=== PATIENT | female | born 1985 | race Caucasian/White ===

== ENCOUNTER 2022-01-10 17:27 | Emergency (ER) | payer BC ==
[2022-01-10 17:46] LABS: Absolute Neutrophil Ct (ANC) 4.93 x10^3/uL (1.4-6.9); Basophil (Absolute #) 0.05 x10^3/uL (0-0.4); Eosinophil % 5.6 % (0.00-5.0); Eosinophil (Absolute #) 0.42 x10^3/uL (0-0.5); Hematocrit 38.7 % (35-47); Lymphocyte (Absolute #) 1.57 x10^3/uL (1.0-4.6); Lymphocytes % 20.8 % (24.0-44.0); Mean Cell Volume 81.8 fL (78-100); Mean Corpuscular Hemoglobin 25.4 pg (26-32); Monocyte (Absolute #) 0.57 x10^3/uL (0.0-1.3); Monocytes % 7.5 % (0.0-12.0); Neutrophil % 65.1 % (36.0-66.0); Platelet Count 256 x10^3/uL (150-450); Red Blood Count 4.73 x10^6/uL (4.1-5.4); Red Cell Distribution Width 13.1 % (11.5-14.0); White Blood Count 7.6 x10^3/uL (4.0-10.5)
--- NOTE | 2022-01-10 18:19 | ERPHSYRPT ---
- History of Present Illness Source: patient Exam Limitations: no limitations Patient Subjective Stated Complaint: - bleeding Triage Nursing Assessment: Patient ambulated back to ED and transferred self to bed. Patient A+O X3. Patient's skin pink, warm and dry. Patient states she is 8 weeks and 4 days . Patient states she started having a little blood when she wiped. Patient states today she started wearing a pad and around 1600 she started bleeding very bad with clots. Patient states she was having pain, but denies pain now. Patient states she is still bleeding. Timing/Duration: other (1600) Activites at Onset: rest Quality: cramping (Resolved) Onset Location: suprapubic Pain Radiation: none Severity of Pain-Max: moderate Severity of Pain-Current: none Prior abdominal problems: none Sexual intercourse history: other (Pt ) Modifying Factors: Improves With: nothing Associated Symptoms: denies symptoms Hx Tetanus, Diphtheria Vaccination/Date Given: Yes Hx Influenza Vaccination/Date Given: No Hx Pneumococcal Vaccination/Date Given: No <FIONA FARMER - Last Filed: 01/10/22 19:15> <RAMONA BRODERICK - Last Filed: 01/10/22 19:59> - History of Present Illness Time Seen by Provider: 01/10/22 19:55 Physician History: 36 yo WF who is 8wks, 4days presents w vaginal bleeding since 1600 today. Pt had mild supra-pubic cramping which has since resolved. She denies N/V/D/fever/dysuria. She has not had an [place] yest. (FIONA FARMER) Allergies/Adverse Reactions: No Known Drug Allergies Allergy (Verified 01/10/22 17:36) Home Medications: Labetalol HCl 100 mg [Trandate 100 MG] 1 tab PO BID 01/10/22 [History] Travel Risk - International Travel Have you traveled outside of the country in past 3 weeks: No - Coronavirus Screening Are you exhibiting any of the following symptoms?: No Close contact with a COVID-19 positive Pt in past 14-21 Days: No - Vaccine Status Have you recieved a Covid-19 vaccination: No <FIONA FARMER - Last Filed: 01/10/22 19:15> - Review of Systems Constitutional: No Symptoms Eyes: No Symptoms Ears, Nose, & Throat: No Symptoms Respiratory: No Symptoms Cardiac: No Symptoms Abdominal/Gastrointestinal: No Symptoms Genitourinary Symptoms: No Symptoms, Vaginal Bleeding Musculoskeletal: No Symptoms Skin: No Symptoms Neurological: No Symptoms Psychological: No Symptoms Endocrine: No Symptoms Hematologic/Lymphatic: No Symptoms Immunological/Allergic: No Symptoms <FIONA FARMER - Last Filed: 01/10/22 19:15> - Past Medical History Pertinent Past Medical History: Yes Neurological History: No Pertinent History ENT History: No Pertinent History Cardiac History: Hypertension Respiratory History: No Pertinent History Endocrine Medical History: No Pertinent History Musculoskeletal History: No Pertinent History GI Medical History: Gallbladder Disease History: No Pertinent History Psycho-Social History: No Pertinent History Female Reproductive Disorders: No Pertinent History - Past Surgical History Past Surgical History: Yes Neuro Surgical History: No Pertinent History Cardiac: No Pertinent History Respiratory: No Pertinent History Gastrointestinal: Cholecystectomy Genitourinary: No Pertinent History Musculoskeletal: No Pertinent History Female Surgical History: No Pertinent History - Social History Smoking Status: Never smoker Exposure to second hand smoke: No Drug Use: none Patient Lives Alone: No - Female History Hx Last Menstrual Period: November 11 Hx Now: Yes Expected Date of Delivery: 08/18/22 <FIONA FARMER - Last Filed: 01/10/22 19:15> - Physical Exam General Appearance: no apparent distress Eye Exam: PERRL/EOMI, eyes nml inspection Ears, Nose, Throat Exam: normal ENT inspection, TMs normal, pharynx normal, moist mucous membranes Neck Exam: normal inspection, non-tender, supple, full range of motion, No meningismus, No mass, No Brudzinski, No Kernig's Respiratory Exam: normal breath sounds, lungs clear, airway intact Cardiovascular Exam: regular rate/rhythm, normal heart sounds, normal peripheral pulses, capillary refill <2 sec, No murmur Gastrointestinal/Abdomen Exam: soft, normal bowel sounds, No tenderness Back Exam: normal inspection, normal range of motion, No CVA tenderness, No vertebral tenderness Extremity Exam: normal inspection, normal range of motion Neurologic Exam: alert, oriented x 3, cooperative, 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, normal mood/affect, nml cerebellar function, nml station & gait, sensation nml Skin Exam: normal color, warm, dry, No rash Lymphatic Exam: No adenopathy SpO2 Interpretation: normal SpO2: 99 O2 Delivery: Room Air <FIONA FARMER - Last Filed: 01/10/22 19:15> - Nursing Vital Signs Nursing Vital Signs: Initial Vital Signs Temperature 97.6 F 01/10/22 17:39 Pulse Rate 84 01/10/22 17:39 Respiratory Rate 18 01/10/22 17:39 Blood Pressure 149/93 01/10/22 17:39 O2 Sat by Pulse Oximetry 99 01/10/22 17:39 Pain Scale Pain Intensity 0 Hypertensive (FIONA FARMER) - Course Nursing assessment & vital signs reviewed: Yes <FIONA FARMER - Last Filed: 01/10/22 19:15> Ordered Tests: Active Orders 24 hr Category Date Time Status OB LIMITED [US] Stat Exams 01/10/22 19:44 Taken CBC W DIFF Stat Lab 01/10/22 17:44 Completed HCG QUALITATIVE,SERUM Stat Lab 01/10/22 17:44 Completed HCG, Quantitative (Inhouse) Stat Lab 01/10/22 17:44 Completed Lab/Rad Data: Laboratory Result Diagrams 01/10/22 17:44 Laboratory Results 01/10/22 01/10/22 01/10/22 Range/Units 17:57 17:44 17:44 WBC (4.0-10.5) x10^3/uL RBC (4.1-5.4) x10^6/uL Hgb (12.0-16.0) g/dL Hct (35-47) % MCV (78-100) fL MCH (26-32) pg MCHC (32-36) g/dL RDW (11.5-14.0) % Plt Count (150-450) x10^3/uL MPV (7.5-11.0) fL Gran % (36.0-66.0) % Immature Gran % (Auto) (0.00-0.4) % Nucleat RBC Rel Count (0.00-0.1) % Eos # (Auto) (0-0.5) x10^3/uL Immature Gran # (Auto) (0.00-0.03) x10^3u/L Absolute Lymphs (auto) (1.0-4.6) x10^3/uL Absolute Monos (auto) (0.0-1.3) x10^3/uL Absolute Nucleated RBC (0.00-0.01) x10^3u/L Lymphocytes % (24.0-44.0) % Monocytes % (0.0-12.0) % Eosinophils % (0.00-5.0) % Basophils % (0.0-0.4) % Absolute Granulocytes (1.4-6.9) x10^3/uL Basophils # (0-0.4) x10^3/uL Beta HCG, Quant 86615 mIU/ml Serum , Qual POSITIVE (Negative) Rh Factor POSITIVE 01/10/22 Range/Units 17:44 WBC 7.6 (4.0-10.5) x10^3/uL RBC 4.73 (4.1-5.4) x10^6/uL Hgb 12.0 (12.0-16.0) g/dL Hct 38.7 (35-47) % MCV 81.8 (78-100) fL MCH 25.4 L (26-32) pg MCHC 31.0 L (32-36) g/dL RDW 13.1 (11.5-14.0) % Plt Count 256 (150-450) x10^3/uL MPV 9.0 (7.5-11.0) fL Gran % 65.1 (36.0-66.0) % Immature Gran % (Auto) 0.3 (0.00-0.4) % Nucleat RBC Rel Count 0.0 (0.00-0.1) % Eos # (Auto) 0.42 (0-0.5) x10^3/uL Immature Gran # (Auto) 0.02 (0.00-0.03) x10^3u/L Absolute Lymphs (auto) 1.57 (1.0-4.6) x10^3/uL Absolute Monos (auto) 0.57 (0.0-1.3) x10^3/uL Absolute Nucleated RBC 0.00 (0.00-0.01) x10^3u/L Lymphocytes % 20.8 L (24.0-44.0) % Monocytes % 7.5 (0.0-12.0) % Eosinophils % 5.6 H (0.00-5.0) % Basophils % 0.7 (0.0-0.4) % Absolute Granulocytes 4.93 (1.4-6.9) x10^3/uL Basophils # 0.05 (0-0.4) x10^3/uL Beta HCG, Quant mIU/ml Serum , Qual (Negative) Rh Factor <FIONA FARMER - Last Filed: 01/10/22 19:15> - Progress Progress: improved Air Movement: good Blood Culture(s) Obtained: No Antibiotics given: No Counseled pt/family regarding: lab results, diagnosis, need for follow-up, rad results <RAMONA BRODERICK - Last Filed: 01/10/22 19:59> - Progress Progress Note: 01/10/22 19:13 Dr Broderick assumed care of pt at 19:00 (FIONA FARMER) Patient endorsed to Dr. Broderick at approximately [address] Broderick advised to follow- up on pending OB ultrasound. Ultrasound is negative for ectopic. There is no IUP. Cervix is dilated. There are contents at the level of the cervix appear to be passing through. Endometrium measures 2.5 cm. Left corpus luteum measures 3.5 x 3.5 x 3.6 cm. There is tiny cul-de-sac fluid. Patient reassessed. She is well. No vaginal bleeding. No pain. Patient is comfortab le. Patient is Rh+. No indication for RhoGAM. Will discharge home. Patient agrees to follow-up with her primary care doctor within 48 hours for evaluation. Portions of this note were created with voice recognition technology. There may be grammatical, spelling, punctuation or sound alike errors 01/10/22 19:57 (RAMONA BRODERICK) <DARIANFIONA - Last Filed: 01/10/22 19:15> - Departure Departure Disposition: Home Critical Care Time: No <RAMONA BRODERICK - Last Filed: 01/10/22 19:59> - Departure Clinical Impression: Miscarriage at 8 to 28 weeks gestation Condition: Stable Referrals: TRISTAN LENTZ NP [Primary Care Provider] - Follow up/PCP as directed
[2022-01-10 20:08] VITALS: BP 111/59; PULSE 90; O2SAT 100
--- NOTE | 2022-01-11 08:48 | XRAY ---
Indication: Bleeding. Ectopic versus miscarriage. Limited transabdominal and transvaginal early OB ultrasound performed. Comparison: None Uterus anteverted measuring 10.3 x 5.3 x 4.9 cm. Thickened endometrial stripe measuring 2.5 cm. No intrauterine gestational sac/ pole/ heart tones. Lower uterine segment demonstrates 3 mm nabothian cyst. Right ovary measures 3.0 x 1.8 x 1.9 cm on the left measures 4.8 x 3.5 x 3.5 cm. Left ovary demonstrates a 3.6 cm corpus luteal cyst. No suspicious adnexal mass or free fluid. Impression: 1. Negative for intrauterine/ectopic . Correlate with serial beta hCG and follow-up sonogram regarding viability. 2. Thickened endometrial stripe that should be correlated with patient's menstrual cycle. 3. Incidental tiny nabothian cyst and left ovary corpus luteal cyst. Comment: Preliminary report was given.
== END 2022-01-10 20:08 | disposition home or self-care (01) ==
LOC: ED 17:27
DX: O03.9 Complete or unspecified spontaneous abortion without complication (principal); I10 Essential (primary) hypertension; Z28.310 Unvaccinated for COVID-19
CPT/HCPCS: 36415; 76815; 84702; 84703; 85025; 86901; 99282

== ENCOUNTER 2022-05-26 10:01 | Emergency (ER) | payer BC ==
--- NOTE | 2022-05-26 10:07 | ERPHSYRPT ---
- History of Present Illness Time Seen by Provider: 05/26/22 10:07 Source: patient Exam Limitations: no limitations Physician History: This is an overweight 37-year-old white female patient of nurse practitioner Eliazar who has a history of hypertension and anxiety issues. Patient has no known drug allergies. Patient works at the [employer]. She had taken 2 years off after she had her baby and her anxiety seem to have lessened and so she is no longer taking her anxiety medication. Patient takes labetalol for her hypertension and she did take her medication this morning. In the last week she has felt anxious and has been taking her blood pressure and her systolic blood pressure has been in the 150s. Today, she felt more anxious and was having some chest pain. Blood pressure was taken at work and her systolic blood pressure was in the 200s. Patient has no diagnosed coronary artery disease. She is not short of breath. Approximately 1 week to 2 weeks ago she took a test which was positive. However, since that time she had a full. And a repeat test was negative. This also, per her report, caused her some anxiety. Chest pain is mild pressure and tightness substernal, central nonradiating. Timing/Duration: today Severity: moderate Associated Symptoms: chest pain Allergies/Adverse Reactions: No Known Drug Allergies Allergy (Verified 05/26/22 10:29) Home Medications: Labetalol HCl 100 mg [Trandate 100 MG] 1 tab PO BID 01/10/22 [History] Hx Tetanus, Diphtheria Vaccination/Date Given: Yes Hx Influenza Vaccination/Date Given: No Hx Pneumococcal Vaccination/Date Given: No Travel Risk - International Travel Have you traveled outside of the country in past 3 weeks: No - Coronavirus Screening Are you exhibiting any of the following symptoms?: No Close contact with a COVID-19 positive Pt in past 14-21 Days: No - Vaccine Status Have you recieved a Covid-19 vaccination: No - Review of Systems Constitutional: No Symptoms Eyes: No Symptoms Ears, Nose, & Throat: No Symptoms Respiratory: No Symptoms Cardiac: Chest Pain (Nonradiating pressure, central and substernal) Abdominal/Gastrointestinal: No Symptoms Genitourinary Symptoms: No Symptoms Musculoskeletal: No Symptoms Skin: No Symptoms Neurological: No Symptoms Psychological: Anxiety Endocrine: No Symptoms Hematologic/Lymphatic: No Symptoms Immunological/Allergic: No Symptoms All Other Systems: Reviewed and Negative - Past Medical History Pertinent Past Medical History: Yes Neurological History: No Pertinent History ENT History: No Pertinent History Cardiac History: Hypertension Respiratory History: No Pertinent History Endocrine Medical History: No Pertinent History Musculoskeletal History: No Pertinent History GI Medical History: Gallbladder Disease History: No Pertinent History Psycho-Social History: No Pertinent History Female Reproductive Disorders: No Pertinent History - Past Surgical History Past Surgical History: Yes Neuro Surgical History: No Pertinent History Cardiac: No Pertinent History Respiratory: No Pertinent History Gastrointestinal: Cholecystectomy Genitourinary: No Pertinent History Musculoskeletal: No Pertinent History Female Surgical History: No Pertinent History - Social History Smoking Status: Never smoker Exposure to second hand smoke: No Drug Use: none Patient Lives Alone: No - Nursing Vital Signs Nursing Vital Signs: Initial Vital Signs Temperature 96.8 F 05/26/22 10:14 Pulse Rate 71 05/26/22 10:14 Respiratory Rate 18 05/26/22 10:14 Blood Pressure 200/112 05/26/22 10:14 O2 Sat by Pulse Oximetry 98 05/26/22 10:14 Pain Scale Pain Intensity 4 - Physical Exam General Appearance: no apparent distress, alert, anxiety Eye Exam: PERRL/EOMI, eyes nml inspection Ears, Nose, Throat Exam: normal ENT inspection, moist mucous membranes Neck Exam: normal inspection, non-tender, supple, full range of motion Respiratory Exam: normal breath sounds, chest tenderness, lungs clear, airway intact, No respiratory distress Cardiovascular Exam: regular rate/rhythm, normal heart sounds, normal peripheral pulses Gastrointestinal/Abdomen Exam: soft, normal bowel sounds, No tenderness Pelvic Exam: not done Rectal Exam: not done Back Exam: normal inspection, normal range of motion, No CVA tenderness, No vertebral tenderness Extremity Exam: normal inspection, normal range of motion, pelvis stable Neurologic Exam: alert, oriented x 3, cooperative, 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, normal mood/affect, nml cerebellar function, nml station & gait, sensation nml Skin Exam: normal color, warm, dry Lymphatic Exam: No adenopathy SpO2 Interpretation: normal O2 Delivery: Room Air - Course Nursing assessment & vital signs reviewed: Yes EKG Interpreted by Me: RATE (71), Sinus Rhythm, NORMAL AXIS, NORMAL INTERVALS, NORMAL QRS, NORMAL ST-T, Other (No acute ischemic changes on today's twelve-lead EKG.) Ordered Tests: Active Orders 24 hr Category Date Time Status EKG-ER Only STAT Care 05/26/22 10:16 Active IV Insertion STAT Care 05/26/22 10:16 Active Pulse Oximetry (ED) STAT Care 05/26/22 10:32 Active CHEST WITH CONTRAST [CT] Stat Exams 05/26/22 11:35 Completed CBC W DIFF Stat Lab 05/26/22 10:22 Completed CMP Stat Lab 05/26/22 10:22 Completed D-DIMER QUANTITATIVE Stat Lab 05/26/22 10:22 Completed HCG QUALITATIVE,SERUM Stat Lab 05/26/22 10:22 Completed TROPONIN Q4H Lab 05/26/22 10:22 Completed TROPONIN Q4H Lab 05/26/22 14:45 Ordered TROPONIN Q4H Lab 05/26/22 18:45 Ordered UA W/RFX UR CULTURE Stat Lab 05/26/22 10:41 Completed Medication Summary Generic Name Dose Route Start Last Admin Trade Name Freq PRN Reason Stop Dose Admin Sodium Chloride 500 mls @ 500 mls/hr 05/26/22 11:35 05/26/22 11:37 Sodium Chloride 0.9% 500 Ml IV 05/26/22 12:34 500 mls/hr .Q1H ONE Administration Discontinued Medications Generic Name Dose Route Start Last Admin Trade Name Freq PRN Reason Stop Dose Admin Aspirin 324 mg 05/26/22 10:32 05/26/22 11:01 Aspirin 81 Mg Tab.Chew PO 05/26/22 10:33 324 mg STAT ONE Administration Aspirin Confirm 05/26/22 11:08 Aspirin 81 Mg Tab.Chew Administered 05/26/22 11:09 Dose 324 mg .ROUTE .STK-MED ONE Sodium Chloride Confirm 05/26/22 11:36 Sodium Chloride 0.9% 500 Ml Administered 05/26/22 11:37 Dose 500 mls @ ud IV .STK-MED ONE Lorazepam 1 mg 05/26/22 10:32 05/26/22 11:01 Lorazepam 2 Mg/1 Ml 2 Mg Vial IV 05/26/22 10:33 1 mg STAT ONE Administration Lorazepam Confirm 05/26/22 11:00 Lorazepam 2 Mg/1 Ml 2 Mg Vial Administered 05/26/22 11:01 Dose 2 mg .ROUTE .STK-MED ONE Lab/Rad Data: Laboratory Result Diagrams 05/26/22 10:22 05/26/22 10:22 Laboratory Results 05/26/22 05/26/22 05/26/22 Range/Units 10:41 10:22 10:22 WBC (4.0-10.5) x10^3/uL RBC (4.1-5.4) x10^6/uL Hgb (12.0-16.0) g/dL Hct (35-47) % MCV (78-100) fL MCH (26-32) pg MCHC (32-36) g/dL RDW (11.5-14.0) % Plt Count (150-450) x10^3/uL MPV (7.5-11.0) fL Gran % (36.0-66.0) % Immature Gran % (Auto) (0.00-0.4) % Nucleat RBC Rel Count (0.00-0.1) % Eos # (Auto) (0-0.5) x10^3/uL Immature Gran # (Auto) (0.00-0.03) x10^3u/L Absolute Lymphs (auto) (1.0-4.6) x10^3/uL Absolute Monos (auto) (0.0-1.3) x10^3/uL Absolute Nucleated RBC (0.00-0.01) x10^3u/L Lymphocytes % (24.0-44.0) % Monocytes % (0.0-12.0) % Eosinophils % (0.00-5.0) % Basophils % (0.0-0.4) % Absolute Granulocytes (1.4-6.9) x10^3/uL Basophils # (0-0.4) x10^3/uL D-Dimer 0.52 H (0.0-0.50) mg/L Sodium (137-145) mmol/L Potassium (3.5-5.1) mmol/L Chloride (98-107) mmol/L Carbon Dioxide (22-30) mmol/L Anion Gap (5-15) MEQ/L BUN (7-17) mg/dL Creatinine (0.52-1.04) mg/dL Estimated GFR ML/MIN Glucose (74-106) mg/dL Calcium (8.4-10.2) mg/dL Total Bilirubin (0.2-1.3) mg/dL AST (14-36) U/L ALT (0-35) U/L Alkaline Phosphatase (38-126) U/L Troponin I < 0.012 (0.000-0.034) ng/mL Serum Total Protein (6.3-8.2) g/dL Albumin (3.5-5.0) g/dL Serum , Qual (Negative) Urine Color Yellow (Yellow) Urine Appearance Cloudy A (Clear) Urine pH 5.5 (4.6-8.0) Ur Specific [place] 1.020 (1.005-1.030) Urine Protein Negative (Negative) Urine Glucose (UA) Negative (Negative) mg/dL Urine Ketones Negative (Negative) Urine Blood Negative (Negative) Urine Nitrite Negative (Negative) Urine Bilirubin Negative (Negative) Urine Urobilinogen 0.2 (0.2) mg/dL Ur Leukocyte Esterase Negative (Negative) U Hyaline Cast (Auto) NONE SEEN (0-2) /LPF Urine Microscopic RBC 0-2 (0-5) /HPF Urine Microscopic WBC 0-2 (0-5) /HPF Ur Epithelial Cells None Seen (None Seen) /HPF Urine Bacteria None Seen (None Seen) /HPF Urine Culture Reflexed NO (NO) 05/26/22 05/26/22 05/26/22 Range/Units 10:22 10:22 10:22 WBC 5.6 (4.0-10.5) x10^3/uL RBC 4.87 (4.1-5.4) x10^6/uL Hgb 12.6 (12.0-16.0) g/dL Hct 38.9 (35-47) % MCV 79.9 (78-100) fL MCH 25.9 L (26-32) pg MCHC 32.4 (32-36) g/dL RDW 12.6 (11.5-14.0) % Plt Count 248 (150-450) x10^3/uL MPV 9.3 (7.5-11.0) fL Gran % 46.3 (36.0-66.0) % Immature Gran % (Auto) 0.9 H (0.00-0.4) % Nucleat RBC Rel Count 0.0 (0.00-0.1) % Eos # (Auto) 0.19 (0-0.5) x10^3/uL Immature Gran # (Auto) 0.05 H (0.00-0.03) x10^3u/L Absolute Lymphs (auto) 2.21 (1.0-4.6) x10^3/uL Absolute Monos (auto) 0.49 (0.0-1.3) x10^3/uL Absolute Nucleated RBC 0.00 (0.00-0.01) x10^3u/L Lymphocytes % 39.3 (24.0-44.0) % Monocytes % 8.7 (0.0-12.0) % Eosinophils % 3.4 (0.00-5.0) % Basophils % 1.4 (0.0-0.4) % Absolute Granulocytes 2.61 (1.4-6.9) x10^3/uL Basophils # 0.08 (0-0.4) x10^3/uL D-Dimer (0.0-0.50) mg/L Sodium 139 (137-145) mmol/L Potassium 4.1 (3.5-5.1) mmol/L Chloride 102 (98-107) mmol/L Carbon Dioxide 24 (22-30) mmol/L Anion Gap 17.6 H (5-15) MEQ/L BUN 12 (7-17) mg/dL Creatinine 0.91 (0.52-1.04) mg/dL Estimated GFR > 60.0 ML/MIN Glucose 100 (74-106) mg/dL Calcium 9.0 (8.4-10.2) mg/dL Total Bilirubin 0.40 (0.2-1.3) mg/dL AST 33 (14-36) U/L ALT 29 (0-35) U/L Alkaline Phosphatase 109 (38-126) U/L Troponin I (0.000-0.034) ng/mL Serum Total Protein 8.3 H (6.3-8.2) g/dL Albumin 4.7 (3.5-5.0) g/dL Serum , Qual NEGATIVE (Negative) Urine Color (Yellow) Urine Appearance (Clear) Urine pH (4.6-8.0) Ur Specific [place] (1.005-1.030) Urine Protein (Negative) Urine Glucose (UA) (Negative) mg/dL Urine Ketones (Negative) Urine Blood (Negative) Urine Nitrite (Negative) Urine Bilirubin (Negative) Urine Urobilinogen (0.2) mg/dL Ur Leukocyte Esterase (Negative) U Hyaline Cast (Auto) (0-2) /LPF Urine Microscopic RBC (0-5) /HPF Urine Microscopic WBC (0-5) /HPF Ur Epithelial Cells (None Seen) /HPF Urine Bacteria (None Seen) /HPF Urine Culture Reflexed (NO) - Progress Progress: improved, re-examined Progress Note: 05/26/22 12:02 This patient's medical issue is 1 of moderate complexity. The level of complexity in the work-up performed was based on review of the patient's history of present illness, review of her medication list, review of her drug allergy list, history of present illness and physical findings on examination. The work-up performed includes placement of intravenous line, twelve-lead EKG, urinalysis, D-dimer, troponin level, CBC, and CMP. I reviewed the results of the studies. The only slight abnormality was a slightly elevated D-dimer level. I discussed the CT scan of the chest with contrast. Patient desired to proceed with this study. We are awaiting the results of this study. If it is negative, we will discharge the patient to home with instructions to follow-up with her prescribing provider. We will have the patient make a daily log of morning noon and night blood pressure levels over the weekend and provide this to the patient's provider to determine further management of her blood pressure. 05/26/22 12:23 CT of the chest with contrast shows no acute cardiopulmonary process. There is no evidence of any pulmonary embolus. Counseled pt/family regarding: lab results, diagnosis, need for follow-up, rad results Medical Desision Making - Discussion of managment Reviewed:: Test results Agreed on:: Treatment plan - Diagnostic Testing Diagnostic test were ordered, analyzed, and reviewed by me: Yes Radiological Interpretation: Reviewed by me - Risk of complications Low Risk: Low risk of morbidity from additional dx testing or treatment - Departure Departure Disposition: Home Clinical Impression: Hypertension, Anxiety Condition: Stable Critical Care Time: No Referrals: TRISTAN LENTZ NP [Primary Care Provider] - Follow up/PCP as directed Additional Instructions: Take your medication as prescribed. Keep a morning noon and night daily log of your blood pressure over the next 3 days. Contact your primary care provider today to make arranges for follow-up appointment in the next 3 days. Forms: Work/School Release Form
[2022-05-26 10:29] VITALS: O2SAT 98
[2022-05-26] MEDS ORDERED: BABY ASPIRIN 81 MG CHEW PO ONE (10:32)
[2022-05-26] MEDS ORDERED: Ativan 2 MG/1 ML VIAL IV ONE (10:32)
[2022-05-26 10:38] LABS: Absolute Neutrophil Ct (ANC) 2.61 x10^3/uL (1.4-6.9); BASOPHIL % 1.4 % (0.0-0.4); Basophil (Absolute #) 0.08 x10^3/uL (0-0.4); Eosinophil % 3.4 % (0.00-5.0); Eosinophil (Absolute #) 0.19 x10^3/uL (0-0.5); Hematocrit 38.9 % (35-47); Hemoglobin 12.6 g/dL (12.0-16.0); IMMATURE GRAN # 0.05 x10^3u/L (0.00-0.03); IMMATURE GRAN % 0.9 % (0.00-0.4); Lymphocyte (Absolute #) 2.21 x10^3/uL (1.0-4.6); Lymphocytes % 39.3 % (24.0-44.0); Mean Cell Volume 79.9 fL (78-100); Mean Corpuscular Hemoglobin 25.9 pg (26-32); Mean Corpuscular Hgb Concent. 32.4 g/dL (32-36); Mean Platelet Volume 9.3 fL (7.5-11.0); Monocyte (Absolute #) 0.49 x10^3/uL (0.0-1.3); Monocytes % 8.7 % (0.0-12.0); Neutrophil % 46.3 % (36.0-66.0); Platelet Count 248 x10^3/uL (150-450); Red Blood Count 4.87 x10^6/uL (4.1-5.4); Red Cell Distribution Width 12.6 % (11.5-14.0); White Blood Count 5.6 x10^3/uL (4.0-10.5)
[2022-05-26 10:41] LABS: ALBUMIN 4.7 g/dL (3.5-5.0); ALKALINE PHOSPHATASE 109 U/L (38-126); ANION GAP 17.6 MEQ/L (5-15); BLOOD UREA NITROGEN 12 mg/dL (7-17); CHLORIDE 102 mmol/L (98-107); Carbon Dioxide 24 mmol/L (22-30); Creatinine 1 0.91 mg/dL (0.52-1.04); EST GLOMERULAR FILTRATION RATE > 60.0 ML/MIN; Glucose 100 mg/dL (74-106); Potassium 4.1 mmol/L (3.5-5.1); SGOT/AST 33 U/L (14-36); SGPT/ALT 29 U/L (0-35); SODIUM 139 mmol/L (137-145); Total Protein 8.3 g/dL (6.3-8.2)
[2022-05-26] MEDS ORDERED: Ativan 2 MG/1 ML VIAL ONE (11:00)
[2022-05-26] MEDS ORDERED: BABY ASPIRIN 81 MG CHEW ONE (11:08)
[2022-05-26] MEDS ORDERED: Sodium Chloride 0.9% 500 ML 500 ML IV ONE ×2 (11:35→11:36)
[2022-05-26 11:45] LABS: Appearance Cloudy (Clear); Bacteria None Seen /HPF (None Seen); Bilirubin Negative (Negative); Blood Negative (Negative); Epithelial Cells None Seen /HPF (None Seen); Glucose, Urine Negative (Negative); Hyaline Casts NONE SEEN /LPF (0-2); Ketones Negative (Negative); Leukocyte Esterase Negative (Negative); Nitrite Negative (Negative); Ph 5.5 (4.6-8.0); Protein,Urine Dip Negative (Negative); RBC 0-2 /HPF (0-5); Urobilinogen 0.2 mg/dL (0.2); WBC 0-2 /HPF (0-5)
[2022-05-26 12:00] LABS: ADD URINE CULTURE? NO (NO)
--- NOTE | 2022-05-26 12:16 | XRAY ---
Indication: Chest pain. Elevated d-dimer. Multiple contiguous axial images obtained through the chest using 80 cc Isovue 370 contrast and PE protocol. Comparison: None Adequate opacification of the pulmonary arteries. Mild respiration artifact limits evaluation of the more distal lobar and segmental branches. No obvious pulmonary embolus. Heart is not enlarged. Aorta is normal in course and caliber. No pathologic mediastinal/hilar lymphadenopathy. Lungs demonstrates minimal bilateral subsegmental atelectasis/scarring. No suspicious pulmonary mass/nodule, infiltrate, or effusion. Bony thorax intact with minimal degenerative changes throughout the spine. Limited upper abdomen demonstrates fatty liver and cholecystectomy clips. Impression: 1. Mild respiration artifact. No obvious pulmonary embolus or acute cardiopulmonary abnormalities.. 2. Incidental bilateral subsegmental atelectasis/scarring, degenerative spondylosis, and fatty liver.
[2022-05-26 12:30] VITALS: BP 131/95; PULSE 70
== END 2022-05-26 12:38 | disposition home or self-care (01) ==
LOC: ED 10:01
DX: I10 Essential (primary) hypertension (principal); F41.9 Anxiety disorder, unspecified; R07.9 Chest pain, unspecified; Z79.899 Other long term (current) drug therapy; Z28.310 Unvaccinated for COVID-19
CPT/HCPCS: 36000; 36415; 71260; 80053; 81001; 84484; 84703; 85025; 85379; 93005; 94760; 96374; 99284; J2060; A9270-GY

== ENCOUNTER 2022-11-13 08:01 | Emergency (ER) | payer BC ==
[2022-11-13 08:13] VITALS: RESP 20
--- NOTE | 2022-11-13 08:27 | ERPHSYRPT ---
- History of Present Illness Time Seen by Provider: 11/13/22 08:10 Source: patient Exam Limitations: no limitations Patient Subjective Stated Complaint: Pt states "I am almost 21 weeks and I was picking up my dog on sunday and felt my back stretch and now I hurt ." Triage Nursing Assessment: Pt presented alert and oriented X 3, skin pwd. Pt ambulates with a slow gait, pt able to speak in clear full sentences. PT stiff and grunting with movement. Physician History: This is a 37-year-old white female patient who is 21 weeks and whose primary care physician and fisheries diver is Dr. Oliver and presents with 2-day history of back pain. 2 days ago, the patient was attempting to moss picker her dog and felt a pulling stretching in her lower back. She has had tenderness ever since. She did not fall. She had no acute trauma to the back area. She is concerned because she is and not sure what she can do to help relieve her pain. She has intermittently tried Tylenol. She also tried heating pad to the area intermittently. She has had no vaginal bleeding. She has no urinary tract infection symptoms. Timing/Duration: day(s) (2) Method of Injury: bending Quality: sharp Back Pain Location: paraspinous muscles (Lumbar region right side ) Severity of Pain-Max: moderate Severity of Pain-Current: mild Modifying Factors: Improves With: movement (To moderate) Associated Symptoms: denies symptoms, lower back pain, No urinary incontinence, No loss of bowel control, No problems urinating, No numbness in legs/feet Previous symptoms: no prior history Allergies/Adverse Reactions: No Known Drug Allergies Allergy (Verified 05/26/22 10:29) Home Medications: Labetalol HCl 100 mg [Trandate 100 MG] 1 tab PO BID 01/10/22 [History] Hx Tetanus, Diphtheria Vaccination/Date Given: No Hx Influenza Vaccination/Date Given: No Hx Pneumococcal Vaccination/Date Given: No Immunizations Up to Date: No Travel Risk - International Travel Have you traveled outside of the country in past 3 weeks: No - Coronavirus Screening Are you exhibiting any of the following symptoms?: No Close contact with a COVID-19 positive Pt in past 14-21 Days: No - Vaccine Status Have you recieved a Covid-19 vaccination: No - Review of Systems Constitutional: No Symptoms Eyes: No Symptoms Ears, Nose, & Throat: No Symptoms Respiratory: No Symptoms Cardiac: No Symptoms Abdominal/Gastrointestinal: No Symptoms Genitourinary Symptoms: No Symptoms Musculoskeletal: Back Pain Skin: No Symptoms Neurological: No Symptoms Psychological: No Symptoms Endocrine: No Symptoms Hematologic/Lymphatic: No Symptoms Immunological/Allergic: No Symptoms All Other Systems: Reviewed and Negative - Past Medical History Pertinent Past Medical History: Yes Neurological History: No Pertinent History ENT History: No Pertinent History Cardiac History: Hypertension Respiratory History: No Pertinent History Endocrine Medical History: No Pertinent History Musculoskeletal History: No Pertinent History GI Medical History: Gallbladder Disease History: No Pertinent History Psycho-Social History: No Pertinent History Female Reproductive Disorders: No Pertinent History - Past Surgical History Past Surgical History: Yes Neuro Surgical History: No Pertinent History Cardiac: No Pertinent History Respiratory: No Pertinent History Gastrointestinal: Cholecystectomy Genitourinary: No Pertinent History Musculoskeletal: No Pertinent History Female Surgical History: No Pertinent History - Social History Smoking Status: Never smoker Exposure to second hand smoke: No Drug Use: none Patient Lives Alone: No - Female History Hx Last Menstrual Period: 06/21/2022 Hx Now: Yes Gestational Age: 20 5 days - Nursing Vital Signs Nursing Vital Signs: Initial Vital Signs Temperature 97.8 F 11/13/22 08:07 Pulse Rate 98 H 11/13/22 08:07 Respiratory Rate 20 11/13/22 08:07 Blood Pressure 129/86 11/13/22 08:07 O2 Sat by Pulse Oximetry 97 11/13/22 08:07 Pain Scale Pain Intensity [Lower Back] 5 Pain Intensity 5 - Physical Exam General Appearance: no apparent distress, alert, anxiety Eye Exam: PERRL/EOMI, eyes nml inspection Ears, Nose, Throat Exam: normal ENT inspection, moist mucous membranes Neck Exam: normal inspection, non-tender, supple, full range of motion Respiratory Exam: lungs clear, airway intact, No chest tenderness, No respiratory distress Gastrointestinal Exam: No tenderness Pelvic Exam: not done Rectal Exam: not done Extremity Exam: normal inspection, normal range of motion, pelvis stable Neurologic Exam: alert, oriented x 3, cooperative, 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 The level of complexity in the work-up performed is based on review of the patient's past medical history, review the patient's medication list, review of patient drug allergy list, history of present illness and physical examination findings. No laboratory radiographic studies are necessary in this patient. We will provide the patient with instructions to use Tylenol at least 500 mg orally every 4 hours while awake. In addition, she may alternate ice and heat to the tender areas every 4 hours. In addition, she can have an individual massage to the area every 4 hours. In addition, she can obtain OTC lidocaine patch and follow directions on that product. She is told to call her fisheries diver this morning for further recommendations and instructions. Counseled pt/family regarding: diagnosis, need for follow-up Medical Desision Making - Independent Historian Additional History obtained from: Spouse - Diagnostic Testing Diagnostic test were ordered, analyzed, and reviewed by me: No - Risk of complications Minimal Risk: Minimal risk of morbidity - Departure Departure Disposition: Home Clinical Impression: Back pain, Low back strain Condition: Stable Critical Care Time: No Referrals: SAMARIA BAEZ MD [Emergency Provider] - Follow up/PCP as directed Additional Instructions: Take Tylenol 500 mg orally every 4 hours while awake. Maximum of 4 g in a 24- hour period. May alternate ice and heat to tender areas in the back every 4 hours while awake. Massage area of tenderness every 4 hours while awake. Obtain OTC lidocaine patch and follow the directions on the product. Call your fisheries diver today to obtain further instructions and a follow-up appointment as needed.
[2022-11-13] MEDS ORDERED: TYLENOL 325 MG PO ONE (08:33)
[2022-11-13] MEDS ORDERED: TYLENOL 325 MG ONE (08:37)
[2022-11-13 09:11] VITALS: BP 124/90; PULSE 88; TEMP 97.5; O2SAT 98
== END 2022-11-13 09:18 | disposition home or self-care (01) ==
LOC: ED 08:01
DX: S39.012A Strain of muscle, fascia and tendon of lower back, initial encounter (principal); X50.0XXA Overexertion from strenuous movement or load, initial encounter; Y93.K9 Activity, other involving animal care; Z33.1 Pregnant state, incidental; I10 Essential (primary) hypertension; Z79.899 Other long term (current) drug therapy; Z28.310 Unvaccinated for COVID-19
CPT/HCPCS: 99281; A9270-GY

== ENCOUNTER 2023-03-06 00:59 | Inpatient (IN) | payer BC ==
[~2023-03-06 00:59] MED LIST: PITOCIN 30 UNITS/ LR 500 ML 30 UNITS/500 ML PLAST..BAG IV SCH
[2023-03-06] MEDS ORDERED: Lactated Ringers 1,000 ML IV SCH (17:00)
[2023-03-06] MEDS ORDERED: FENTANYL 2 MCG-BUPIV 0.125%-NS 250 ML Epidur 250 ML EPIDURAL SCH (17:00)
[2023-03-06] MEDS ORDERED: PITOCIN 30 UNITS/ LR 500 ML 30 UNITS/500 ML PLAST..BAG IV SCH (17:00)
[2023-03-06] MEDS ORDERED: Nubain 10 MG/ML IV PRN (17:00)
[2023-03-06] MEDS ORDERED: XYLOCAINE 1% HCL 20 ML MDV IJ PRN (17:00)
[2023-03-06] MEDS ORDERED: Lactated Ringers 1,000 ML IV ONE (17:00)
[2023-03-06] MEDS ORDERED: Ephedrine Sulfate 50 MG/ML IV PRN (17:00)
[2023-03-06] MEDS ORDERED: STADOL 2 MG IV PRN (17:00)
[2023-03-06] MEDS ORDERED: BRETHINE 1 MG/ML SQ PRN (17:00)
[2023-03-06 17:28] LABS: BASOPHIL % 0.2 % (0.0-0.4); Basophil (Absolute #) 0.02 x10^3/uL (0-0.4); Eosinophil % 0.6 % (0.00-5.0); Eosinophil (Absolute #) 0.06 x10^3/uL (0-0.5); Hematocrit 33.9 % (35-47); Hemoglobin 10.9 g/dL (12.0-16.0); IMMATURE GRAN # 0.07 x10^3u/L (0.00-0.03); IMMATURE GRAN % 0.7 % (0.00-0.4); Lymphocyte (Absolute #) 1.61 x10^3/uL (1.0-4.6); Lymphocytes % 15.6 % (24.0-44.0); Mean Cell Volume 81.7 fL (78-100); Mean Corpuscular Hemoglobin 26.3 pg (26-32); Mean Corpuscular Hgb Concent. 32.2 g/dL (32-36); Mean Platelet Volume 9.7 fL (7.5-11.0); Monocyte (Absolute #) 0.89 x10^3/uL (0.0-1.3); Monocytes % 8.6 % (0.0-12.0); Neutrophil % 74.3 % (36.0-66.0); Platelet Count 259 x10^3/uL (150-450); Red Blood Count 4.15 x10^6/uL (4.1-5.4); Red Cell Distribution Width 13.3 % (11.5-14.0); White Blood Count 10.4 x10^3/uL (4.0-10.5)
[2023-03-06] MEDS: CYTOTEC PO SCH ×3 (17:59→22:00)
[2023-03-06 18:00] LABS: Amphetamine,Urine NEGATIVE (NEGATIVE); Barbiturate,Urine NEGATIVE (NEGATIVE); Benzodiazepine,Urine NEGATIVE (NEGATIVE); Cocaine,Urine NEGATIVE (NEGATIVE); Methadone,Urine NEGATIVE (NEGATIVE); Opiate,Urine NEGATIVE (NEGATIVE); PCP,Urine NEGATIVE (NEGATIVE); THC,Urine NEGATIVE (NEGATIVE)
[2023-03-06 18:19] LABS: ABO TYPING O; Antibody Screen NEGATIVE (NEGATIVE); RH TYPING POSITIVE
[2023-03-07] MEDS: CYTOTEC PO SCH ×4 (01:55→05:58)
[2023-03-07] MEDS ORDERED: PITOCIN 30 UNITS/ LR 500 ML 30 UNITS/500 ML PLAST..BAG IV SCH (06:00)
[2023-03-07] MEDS: Lactated Ringers 1,000 ML IV SCH ×3 (08:32→23:40)
[2023-03-07] MEDS: ZOLOFT 50 MG TABLET PO SCH (11:51)
[2023-03-07] MEDS: Zofran 4 MG/2 ML VIAL IV PRN ×2 (15:39→20:25)
[2023-03-07 15:51] LABS: Appearance Clear (Clear); Bacteria None Seen /HPF (None Seen); Bilirubin Negative (Negative); Blood Negative (Negative); Epithelial Cells None Seen /HPF (None Seen); Glucose, Urine Negative (Negative); Hyaline Casts NONE SEEN /LPF (0-2); Ketones 40 (Negative); Leukocyte Esterase Negative (Negative); Nitrite Negative (Negative); Ph 6.5 (4.6-8.0); Protein,Urine Dip Negative (Negative); RBC 0-2 /HPF (0-5); Specific Gravity 1.015 (1.005-1.030); Urobilinogen 0.2 mg/dL (0.2); WBC 0-2 /HPF (0-5)
[2023-03-07 16:11] LABS: ADD URINE CULTURE? ORDERED SEPARATELY (NO)
[2023-03-07] MEDS ORDERED: Sodium Chloride 0.9% 1000 ML 1,000 ML IV STA (19:35)
[2023-03-07] MEDS ORDERED: Sodium Chloride 0.9% 1000 ML 1,000 ML IV SCH (20:40)
[2023-03-07] MEDS: TYLENOL EXTRA STRENGTH 500 MG PO PRN (21:23)
[2023-03-07] MEDS: Trandate 100 MG PO SCH (21:24)
[2023-03-07] MEDS ORDERED: SUBLIMAZE 100 MCG/2 ML IV ONE (22:04)
[2023-03-07] MEDS ORDERED: Marcaine Spinal Ampul IJ ONE (22:10)
[2023-03-07] MEDS ORDERED: Sensorcaine 0.25% 10 ML IJ ONE (22:11)
[2023-03-07] MEDS ORDERED: Sodium Chloride 0.9% 1000 ML 1,000 ML ONE (23:39)
[2023-03-08] MEDS ORDERED: TUCKS TP PRN (01:36)
[2023-03-08] MEDS ORDERED: LANSINOH 40 GM TOP PRN (01:36)
[2023-03-08] MEDS ORDERED: Mylicon 80MG PO PRN (01:36)
[2023-03-08] MEDS ORDERED: MOTRIN 400 MG PO PRN (01:36)
[2023-03-08] MEDS ORDERED: OCEAN Nasal Spray NS PRN (08:48)
--- NOTE | 2023-03-08 08:48 | PCM.DS ---
Discharge Summary Date of Admission: 03/07/23 09:15 Admitting Physician: GINNA COOMBS Consults: Consults on Case 03/06/23 17:00 Notify Anesthesia Provider ANNABEL 03/08/23 02:55 Navigation ONCE Primary Care Provider: GINNA COOMBS Allergies Allergies No Known Drug Allergies Allergy (Verified 03/06/23 17:42) Hospital Summary - Hospital Course Hospital Course: patient induced at 37wks for chronic hypertension and advanced maternal age, had uncomplicated vaginal delivery, mom has been coughing group home and unchanged, clear sputum - Vitals & Intake/Output Vital Signs: Vital Signs Temperature 99.3 F 03/08/23 04:00 Pulse Rate 121 H 03/08/23 06:03 Respiratory Rate 16 03/08/23 06:00 Blood Pressure 124/67 03/08/23 06:33 O2 Sat by Pulse Oximetry 99 03/08/23 06:00 Intake & Output: Intake & Output 03/05/23 03/06/23 03/07/23 03/08/23 11:59 11:59 11:59 11:59 Intake Total 2400 7200 Output Total 1949 Balance 2400 5251 Weight 113.398 kg - Lab Result Diagrams: 03/06/23 17:19 Lab Results-Last 24 Hrs: Lab Results-Last 24 Hours 03/07/23 Range/Units 15:43 Urine Color Yellow (Yellow) Urine Appearance Clear (Clear) Urine pH 6.5 (4.6-8.0) Ur Specific [place] 1.015 (1.005-1.030) Urine Protein Negative (Negative) Urine Glucose (UA) Negative (Negative) mg/dL Urine Ketones 40 A (Negative) Urine Blood Negative (Negative) Urine Nitrite Negative (Negative) Urine Bilirubin Negative (Negative) Urine Urobilinogen 0.2 (0.2) mg/dL Ur Leukocyte Esterase Negative (Negative) U Hyaline Cast (Auto) NONE SEEN (0-2) /LPF Urine Microscopic RBC 0-2 (0-5) /HPF Urine Microscopic WBC 0-2 (0-5) /HPF Ur Epithelial Cells None Seen (None Seen) /HPF Urine Bacteria None Seen (None Seen) /HPF Urine Culture Reflexed ORDERED SEPARATELY (NO) Discharge Exam General Appearance: obese Neurologic Exam: alert, oriented x 3 Respiratory Exam: normal breath sounds, lungs clear, No respiratory distress Cardiovascular Exam: regular rate/rhythm, normal heart sounds Gastrointestinal/Abdomen Exam: soft, other (fundus firm), No tenderness, No mass Extremity Exam: normal inspection, normal range of motion Final Diagnosis/Problem List - Final Discharge Diagnosis/Problem (1) Vaginal delivery Current Visit: Yes Status: Acute Assessment & Plan: baby transferred to NICU, mom being released today, due to cough will swab for covid prior to discharge Code(s): O80 - ENCOUNTER FOR FULL-TERM UNCOMPLICATED DELIVERY (2) Hypertension Current Visit: No Status: Acute Assessment & Plan: continue labetalol Code(s): I10 - ESSENTIAL (PRIMARY) HYPERTENSION - Discharge Disposition: Home, Self-Care Condition: Stable Prescriptions: Continue Labetalol HCl 100 mg [Trandate 100 MG] 1 tab PO BID Docusate Sodium 100 mg [Docusate Sodium 100 MG] 100 mg PO DAILY Sertraline HCl [Zoloft] 25 mg PO DAILY Pnv No.95/Ferrous Fum/Folic AC [ Vitamin Tablet] 1 tab PO DAILY Follow up with: GINNA COOMBS MD [Primary Care Provider] -
[2023-03-08] MEDS ORDERED: Adacel Vial IM ONE (09:00)
[2023-03-08] MEDS: Trandate 100 MG PO SCH ×3 (09:02→22:11)
[2023-03-08] MEDS: Docusate Sodium 100 MG PO SCH ×2 (09:02→15:43)
[2023-03-08] MEDS: THERAGRAN MULTIVITAMIN PO SCH ×2 (09:02→15:45)
[2023-03-08] MEDS: ZOLOFT 50 MG TABLET PO SCH (09:03)
[2023-03-08 09:05] LABS: Hematocrit 34.2 % (35-47); Hemoglobin 11.3 g/dL (12.0-16.0); Mean Cell Volume 80.5 fL (78-100); Mean Corpuscular Hemoglobin 26.6 pg (26-32); Mean Platelet Volume 9.8 fL (7.5-11.0); Platelet Count 247 x10^3/uL (150-450); Red Blood Count 4.25 x10^6/uL (4.1-5.4); Red Cell Distribution Width 13.6 % (11.5-14.0)
[2023-03-08] MEDS ORDERED: ROCEPHIN 1 Gm-D5w 50 ml Bag** 1 G/50 ML IVPB IV ONE (09:20)
[2023-03-08 09:40] LABS: INFLUENZA A NEGATIVE (NEGATIVE); INFLUENZA B NEGATIVE (NEGATIVE); RESPIRATORY SYNCTIAL VIRUS NEGATIVE (NEGATIVE); SARS-CoV-2 Xpert Express NEGATIVE (NEGATIVE)
--- NOTE | 2023-03-08 09:53 | XRAY ---
Indication: Cough. Elevated WBC. Comparison: None Portable chest demonstrates normal heart, lungs, and bony thorax.
[2023-03-08] MEDS: TYLENOL EXTRA STRENGTH 500 MG PO PRN ×2 (10:15→22:11)
[2023-03-08 11:34] LABS: Lymphocytes 1 % (24-44); Monocyte 1 % (0.0-12.0); Neutrophils 97 % (36.0-66.0); Promyelocyte 1 %; Total Cells Counted 100
[2023-03-08 11:36] LABS: ANISOCYTOSIS 2+
[2023-03-08 11:37] LABS: Platelet Estimate NORMAL (NORMAL); Toxic Granulation 1+
[2023-03-09 04:52] LABS: BASOPHIL % 0.2 % (0.0-0.4); Basophil (Absolute #) 0.03 x10^3/uL (0-0.4); Eosinophil % 0.1 % (0.00-5.0); Eosinophil (Absolute #) 0.01 x10^3/uL (0-0.5); Hematocrit 34.9 % (35-47); IMMATURE GRAN # 0.23 x10^3u/L (0.00-0.03); IMMATURE GRAN % 1.4 % (0.00-0.4); Lymphocyte (Absolute #) 0.94 x10^3/uL (1.0-4.6); Lymphocytes % 5.7 % (24.0-44.0); Mean Cell Volume 83.3 fL (78-100); Mean Corpuscular Hemoglobin 26.3 pg (26-32); Mean Corpuscular Hgb Concent. 31.5 g/dL (32-36); Monocyte (Absolute #) 0.76 x10^3/uL (0.0-1.3); Monocytes % 4.6 % (0.0-12.0); Platelet Count 210 x10^3/uL (150-450); Red Blood Count 4.19 x10^6/uL (4.1-5.4); Red Cell Distribution Width 13.9 % (11.5-14.0); White Blood Count 16.5 x10^3/uL (4.0-10.5)
--- NOTE | 2023-03-09 09:09 | PCM.DS ---
Discharge Summary Date of Admission: 03/07/23 09:15 Admitting Physician: GINNA COOMBS Consults: Consults on Case 03/06/23 17:00 Notify Anesthesia Provider PRN 03/08/23 02:55 Navigation ONCE Primary Care Provider: GINNA COOMBS Allergies Allergies No Known Drug Allergies Allergy (Verified 03/06/23 17:42) Hospital Summary - Hospital Course Hospital Course: patient was induced at 37wks due to chronic hypertension, had uncomplicated vaginal delivery. baby was transferred to NICU due to respiratory distress. had leukocytosis after delivery, low grade fever prior to delivery. she has no complaints today, chest xray and urine culture were negative. afebrile overnight and given rocephin emperically yesterday, wbc from 30,000 to 16,000 today - Vitals & Intake/Output Vital Signs: Vital Signs Temperature 98.1 F 03/09/23 04:01 Pulse Rate 90 03/09/23 04:01 Respiratory Rate 16 03/09/23 04:01 Blood Pressure 111/55 03/09/23 04:01 O2 Sat by Pulse Oximetry 99 03/09/23 04:01 Intake & Output: Intake & Output 03/06/23 03/07/23 03/08/23 03/09/23 11:59 11:59 11:59 11:59 Intake Total 2400 7200 1700 Output Total 1949 Balance 2400 5251 1700 Weight 113.398 kg - Lab Result Diagrams: 03/09/23 04:14 Lab Results-Last 24 Hrs: Lab Results-Last 24 Hours 03/08/23 03/08/23 03/09/23 Range/Units 08:55 08:55 04:14 WBC 30.0 H* 16.5 H (4.0-10.5) x10^3/uL RBC 4.25 4.19 (4.1-5.4) x10^6/uL Hgb 11.3 L 11.0 L (12.0-16.0) g/dL Hct 34.2 L 34.9 L (35-47) % MCV 80.5 83.3 (78-100) fL MCH 26.6 26.3 (26-32) pg MCHC 33.0 31.5 L (32-36) g/dL RDW 13.6 13.9 (11.5-14.0) % Plt Count 247 210 (150-450) x10^3/uL MPV 9.8 10.0 (7.5-11.0) fL Gran % 88.0 H (36.0-66.0) % Immature Gran % (Auto) 1.4 H (0.00-0.4) % Nucleat RBC Rel Count 0.0 (0.00-0.1) % Eos # (Auto) 0.01 (0-0.5) x10^3/uL Immature Gran # (Auto) 0.23 H (0.00-0.03) x10^3u/L Absolute Lymphs (auto) 0.94 L (1.0-4.6) x10^3/uL Absolute Monos (auto) 0.76 (0.0-1.3) x10^3/uL Absolute Nucleated RBC 0.00 (0.00-0.01) x10^3u/L Lymphocytes % 5.7 L (24.0-44.0) % Monocytes % 4.6 (0.0-12.0) % Eosinophils % 0.1 (0.00-5.0) % Basophils % 0.2 (0.0-0.4) % Absolute Granulocytes 14.50 H (1.4-6.9) x10^3/uL Segmented Neutrophils 97 H (36.0-66.0) % Lymphocytes (Manual) 1 L (24-44) % Monocytes (Manual) 1 (0.0-12.0) % Basophils # 0.03 (0-0.4) x10^3/uL Promyelocytes 1 % Toxic Granulation 1+ Platelet Estimate NORMAL (NORMAL) RBC Morphology ABNORMAL Anisocytosis 2+ Smear Path Review Pending Influenza Type A Ag NEGATIVE (NEGATIVE) Influenza Type B Ag NEGATIVE (NEGATIVE) RSV (PCR) NEGATIVE (NEGATIVE) SARS-CoV-2 (PCR) NEGATIVE (NEGATIVE) Micro Results-Entire Visit: Microbiology 03/07/23 15:43 Urine Culture - Preliminary Urine, Catheterized NO GROWTH TO DATE - Radiology Exams Ordered Rad Exams-Entire Visit: Radiology Procedures Category Date Time Status CHEST 1 VIEW (PORTABLE) Stat Exams 03/08/23 09:17 Completed Discharge Exam General Appearance: no apparent distress, obese Neurologic Exam: alert, oriented x 3 Respiratory Exam: normal breath sounds, lungs clear, No respiratory distress Cardiovascular Exam: regular rate/rhythm, normal heart sounds Gastrointestinal/Abdomen Exam: soft, No tenderness, No mass Extremity Exam: normal inspection, normal range of motion Skin Exam: normal color, warm, dry Final Diagnosis/Problem List - Final Discharge Diagnosis/Problem (1) Vaginal delivery Current Visit: Yes Status: Acute Code(s): O80 - ENCOUNTER FOR FULL-TERM UNCOMPLICATED DELIVERY (2) Hypertension Current Visit: No Status: Acute Assessment & Plan: continue labetalol Code(s): I10 - ESSENTIAL (PRIMARY) HYPERTENSION (3) Leukocytosis Current Visit: Yes Status: Acute Assessment & Plan: home on cefdinir emperically, no fever and wbc improved after given a single dose of rocephin Code(s): D72.829 - ELEVATED WHITE BLOOD CELL COUNT, UNSPECIFIED - Discharge Disposition: Home, Self-Care Condition: Stable Prescriptions: New Cefdinir 300 mg PO BID #14 cap Continue Labetalol HCl 100 mg [Trandate 100 MG] 1 tab PO BID Docusate Sodium 100 mg [Docusate Sodium 100 MG] 100 mg PO DAILY Sertraline HCl [Zoloft] 25 mg PO DAILY Pnv No.95/Ferrous Fum/Folic AC [ Vitamin Tablet] 1 tab PO DAILY Follow up with: GINNA COOMBS MD [Primary Care Provider] - 1 Week
[2023-03-09 10:35] VITALS: BP 109/61; PULSE 99; RESP 20; TEMP 97.5; O2SAT 97
== END 2023-03-09 10:30 | disposition home or self-care (01) | DRG 807 ==
LOC: OB 16:36 → OBSVTOIN 03-07 09:15 → MED SURG 03-08 11:37
PROVIDERS: ADMIT Family Medicine; ATTEND Family Medicine
PROC: 10E0XZZ Delivery of Products of Conception, External Approach (ICD-10-PCS; principal; 2023-03-08)
DX: O16.4 Unspecified maternal hypertension, complicating childbirth (principal); Z37.0 Single live birth; O69.81X0 Labor and delivery complicated by cord around neck, without compression, not applicable or unspecified; R50.9 Fever, unspecified; D72.829 Elevated white blood cell count, unspecified; Z3A.37 37 weeks gestation of pregnancy; Z20.828 Contact with and (suspected) exposure to other viral communicable diseases
CPT/HCPCS: 0241U; 36415; 59409; 71045; 80307; 81001; 85025; 86850; 86900; 86901; 87086; 90471; 90715; G0378; G0379; J0696; J2405; J2590; J3010; A9270-GY

== ENCOUNTER 2023-04-24 08:43 | Emergency (ER) | payer BC ==
[2023-04-24 08:55] VITALS: TEMP 97.3; O2SAT 95
--- NOTE | 2023-04-24 10:04 | ERPHSYRPT ---
- History of Present Illness Time Seen by Provider: 04/24/23 09:10 Source: patient Exam Limitations: no limitations Patient Subjective Stated Complaint: sore throat since last night Triage Nursing Assessment: Pt brought to the ER by her mother, román holt, walked into the ER with no issues, rates throat pain as 8/10 and worst sorethroat she has ever had, pulses normal, skin n/w/d, no difficulty breathing, was able to drink water and swallow pills this morning, doesn't appear to be in any distress Physician History: Patient is a 38-year-old female presents to emergency department for evaluation of sore throat. Sore throat started yesterday night. Symptoms worsen throughout the day. Patient had difficulty swallowing secondary to pain. No associated fever. No nausea vomiting or diaphoresis. No diarrhea no rash. Patient's son currently on antibiotics for an ear infection. Otherwise no sick contacts. No chest pain or shortness of breath. Mother at bedside. They voiced no other complaints or concerns at this time. Portions of this note were created with voice recognition technology. There may be grammatical, spelling, punctuation or sound alike errors Timing/Duration: yesterday Severity: moderate Modifying Factors: Improves With: other (Swallowing) Associated Symptoms: denies symptoms Allergies/Adverse Reactions: No Known Drug Allergies Allergy (Verified 04/24/23 08:50) Home Medications: Labetalol HCl 100 mg [Trandate 100 MG] 1 tab PO BID 01/10/22 [History] Sertraline HCl [Zoloft] 25 mg PO DAILY 11/13/22 [History] norgestimate-ethinyl estradioL [Norgestimate-Ee 0.25-0.035 mg] 1 each PO DAILY 04/24/23 [History] Hx Tetanus, Diphtheria Vaccination/Date Given: No Hx Influenza Vaccination/Date Given: No Hx Pneumococcal Vaccination/Date Given: No Travel Risk - International Travel Have you traveled outside of the country in past 3 weeks: No - Coronavirus Screening Are you exhibiting any of the following symptoms?: No Close contact with a COVID-19 positive Pt in past 14-21 Days: No - Vaccine Status Have you recieved a Covid-19 vaccination: No - Review of Systems Constitutional: No Symptoms, No Fever, No Chills Eyes: No Symptoms Ears, Nose, & Throat: No Symptoms Respiratory: No Symptoms, No Cough, No Dyspnea Cardiac: No Symptoms, No Chest Pain, No Edema, No Syncope Abdominal/Gastrointestinal: No Symptoms, No Abdominal Pain, No Nausea, No Vomiting, No Diarrhea Genitourinary Symptoms: No Symptoms, No Dysuria Musculoskeletal: No Symptoms, No Back Pain, No Neck Pain Skin: No Symptoms, No Rash Neurological: No Symptoms, No Dizziness, No Focal Weakness, No Sensory Changes Psychological: No Symptoms Endocrine: No Symptoms Hematologic/Lymphatic: No Symptoms Immunological/Allergic: No Symptoms All Other Systems: Reviewed and Negative - Past Medical History Pertinent Past Medical History: Yes Neurological History: No Pertinent History ENT History: No Pertinent History Cardiac History: Hypertension Respiratory History: No Pertinent History Endocrine Medical History: No Pertinent History Musculoskeletal History: No Pertinent History GI Medical History: No Pertinent History History: No Pertinent History Psycho-Social History: Anxiety Female Reproductive Disorders: No Pertinent History - Past Surgical History Past Surgical History: Yes Neuro Surgical History: No Pertinent History Cardiac: No Pertinent History Respiratory: No Pertinent History Gastrointestinal: Cholecystectomy Genitourinary: No Pertinent History Musculoskeletal: No Pertinent History Female Surgical History: No Pertinent History - Social History Smoking Status: Never smoker Exposure to second hand smoke: No Drug Use: none Patient Lives Alone: No - Female History Hx Last Menstrual Period: last week Hx Now: No - Nursing Vital Signs Nursing Vital Signs: Initial Vital Signs Temperature 97.3 F 04/24/23 08:47 Pulse Rate 98 H 04/24/23 08:47 Blood Pressure 127/80 04/24/23 08:47 O2 Sat by Pulse Oximetry 95 04/24/23 08:47 Pain Scale Pain Intensity 8 - Physical Exam General Appearance: no apparent distress, alert Eye Exam: PERRL/EOMI, eyes nml inspection Ears, Nose, Throat Exam: normal ENT inspection, TMs normal, pharynx normal, moist mucous membranes Neck Exam: normal inspection, non-tender, supple, full range of motion, other (Pharyngitis observed on exam. Otherwise patient tolerating oral secretions. Patient breathing easily. Conversant no distress) Respiratory Exam: normal breath sounds, lungs clear, airway intact, No respiratory distress Cardiovascular Exam: regular rate/rhythm, normal heart sounds, normal peripheral pulses Gastrointestinal/Abdomen Exam: soft, normal bowel sounds, No tenderness, No mass Back Exam: normal inspection, normal range of motion, No CVA tenderness, No vertebral tenderness Extremity Exam: normal inspection, normal range of motion, pelvis stable Neurologic Exam: alert, oriented x 3, cooperative, normal mood/affect, sensation nml, No motor deficits Skin Exam: normal color, warm, dry, No rash Lymphatic Exam: No adenopathy SpO2 Interpretation: normal SpO2: 95 O2 Delivery: Room Air - Course Nursing assessment & vital signs reviewed: Yes Ordered Tests: Medication Summary Discontinued Medications Generic Name Dose Route Start Last Admin Trade Name Urbano PRN Reason Stop Dose Admin Amoxicillin/Clavulanate Potassium 875 mg 04/24/23 10:02 Amox Tr/Potassium Clavulanate 875 Mg Tablet PO 04/24/23 10:03 STAT ONE Dexamethasone Sodium Phosphate 10 mg 04/24/23 10:01 Dexamethasone Sod Phosphate 10 Mg/Ml IM 04/24/23 10:02 STAT ONE Ketorolac Tromethamine 60 mg 04/24/23 10:02 Ketorolac Tromethamine 30 Mg/Ml Inj IM 04/24/23 10:03 STAT ONE Lab/Rad Data: Laboratory Results 04/24/23 Range/Units 09:18 Group A Strep Antibody DETECTED (NEGATIVE) - Progress Progress: improved Progress Note: 38-year-old female presents to our ED with a 1 day history of a sore throat. Physical exam reveals a pharyngitis. Rapid strep positive for strep throat. Patient received IM Toradol 30 mg, 10 mg of Decadron and an oral dose of Augmentin. A prescription for Augmentin and Toradol forwarded to patient's pharmacy. Mother at bedside. They voiced no other complaints or concerns at this time. Patient agrees to follow-up with her primary care doctor within 48 hours for reevaluation. Portions of this note were created with voice recognition technology. There may be grammatical, spelling, punctuation or sound alike errors Complexity of problem addressed is moderate acute complicated No critical care time Complexity of data reviewed and analyzed is moderate. Test ordered test reviewed. Results analyzed and correlated clinically with history and physical exam Risk of complication and or risk of morbidity/mortality of patient management is moderate. A prescription for Toradol and Augmentin forwarded to patient's pharmacy. Vital stable. Time spent to discharge patient is approximately 15 minutes. Plan of care established for shared decision making. No social determinants of health present impede follow-up. 04/24/23 10:25 Counseled pt/family regarding: lab results, diagnosis, need for follow-up - Departure Departure Disposition: Home Clinical Impression: Strep pharyngitis Condition: Stable Critical Care Time: No Referrals: GINNA COOMBS MD [Primary Care Provider] - Follow up/PCP as directed Additional Instructions: Discharge/Care Plan CLAIRE RAMOS was seen on 04/24/23 in the Emergency Room. The patient was counseled regarding Diagnosis,Lab results, Imaging studies, need for follow up and when to return to the Emergency Room. Prescriptions given: Discharge Note I have spoken with the patient and/or caregivers. I have explained the patient's condition, diagnosis and treatment plan based on the information available to me at this time. I have answered the patient's and/or caregiver's questions and addressed any concerns. The patient and/or caregivers have as good understanding of the patient's diagnosis, condition and treatment plan as can be expected at this point. The vital signs have been stable. The patient's condition is stable and appropriate for discharge from the emergency department. The patient will pursue further outpatient evaluation with the primary care physician or other designated or consulting physician as outlined in the dis charge instructions. The patient and/or caregivers are agreeable to this plan of care and follow-up instructions have been explained in detail. The patient and/or caregivers have received these instruction. The patient/and or caregivers are aware that any significant change in condition or worsening of symptoms should prompt an immediate return to this or the closest emergency department or call 911. Prescriptions: Amox Tr/Potass Clav. 875 mg [Augmentin 875-125 Tablet] 875 mg PO BID 7 Days #14 tablet Ketorolac Trometh 10 mg Tab [TORAdol 10 MG TABLET] 10 mg PO TID 5 Days #15 tablet
[2023-04-24] MEDS ORDERED: TORAdol 30 mg Injection ONE (10:05)
[2023-04-24] MEDS ORDERED: DECADRON 10MG INJ. ONE (10:05)
[2023-04-24] MEDS ORDERED: Augmentin 875-125 Tablet ONE (10:05)
[2023-04-24] MEDS: Augmentin 875-125 Tablet PO ONE (10:10)
[2023-04-24] MEDS: DECADRON 10MG INJ. IM ONE (10:10)
[2023-04-24] MEDS: TORAdol 30 mg Injection IM ONE (10:10)
[2023-04-24 10:14] VITALS: BP 121/85; PULSE 98
== END 2023-04-24 10:32 | disposition home or self-care (01) ==
LOC: ED 08:43
DX: J02.0 Streptococcal pharyngitis (principal); I10 Essential (primary) hypertension; Z79.899 Other long term (current) drug therapy; Z28.310 Unvaccinated for COVID-19
CPT/HCPCS: 87651; 96372; 99283; J1100; J1885; A9270-GY